=== PATIENT | female | born 2005 | race Caucasian/White ===

== ENCOUNTER 2024-04-17 21:02 | Emergency (ER) | payer MEDICAID ==
[~2024-04-17] VITALS: Ht 160 cm; Wt 84.0 kg
[2024-04-17 21:11] VITALS: O2SAT 99
[2024-04-17] MEDS: DIPHENHYDRAMINE 25MG CAPSULE PO ONE (22:32)
[2024-04-17] MEDS: METHYLPREDNISOLONE SOD SUCC 125MG/2ML (ACT-O-VIAL) IM ONE (22:32)
[2024-04-17] MEDS ORDERED: HYDR-4622 TP (23:24)
[2024-04-17] MEDS ORDERED: DIPH25TA62 PO (23:24)
[2024-04-17] MEDS ORDERED: DOXY-456 PO (23:24)
[2024-04-17 23:37] VITALS: BP 118/55; PULSE 68; RESP 16; TEMP 37.05852; O2SAT 99
== END 2024-04-18 00:30 | disposition home or self-care (01) ==
LOC: ER 21:02
DX: S80.862A Insect bite (nonvenomous), left lower leg, initial encounter (principal); S80.861A Insect bite (nonvenomous), right lower leg, initial encounter; L03.032 Cellulitis of left toe; L03.031 Cellulitis of right toe; W57.XXXA Bitten or stung by nonvenomous insect and other nonvenomous arthropods, initial encounter; Y93.89 Activity, other specified; Y92.89 Other specified places as the place of occurrence of the external cause; Y99.8 Other external cause status
CPT/HCPCS: 99283; 81025; 96372; Q0163; J2919